=== PATIENT | female | born 1935 | race Caucasian/White ===

== ENCOUNTER 2018-04-15 22:30 | Emergency (ER) | payer MEDICARE, OTHER ==
--- NOTE | 2018-04-15 22:50 | EDM.PDOC ---
ED HPI GENERAL MEDICAL PROBLEM - General Chief Complaint: Lower Extremity Injury/Pain Stated Complaint: L hip pain after fall Time Seen by Provider: 04/15/18 22:43 Source of Information: Reports: Patient History Limitations: Reports: No Limitations - History of Present Illness INITIAL COMMENTS - FREE TEXT/NARRATIVE: 82 YO WF presents to ER after trip and fall at home. Pt reports she was walking and tripped over a single step landing on her left side. Pt denies any head or neck injury. Pt denies any loss of consciousness. Pt complaining of left thigh pain. Pt alert and oriented x 3 and was medicated with fentanyl by EMS prior to arrival. Onset Date: 04/15/18 Onset Time: 22:00 Location: Reports: Lower Extremity, Left Quality: Reports: Ache Severity: Severe Improves with: Reports: Rest Worsens with: Reports: Movement Associated Symptoms: Reports: No Other Symptoms. Denies: Confusion, Chest Pain , Diaphoresis, Fever/Chills, Headaches, Nausea/Vomiting, Shortness of Breath, Syncope Left Hip Pain Score (Numeric/FACES): 4 - Related Data Allergies Allergy/AdvReac Type Severity Reaction Status Date / Time No Known Allergies Allergy Verified 04/15/18 22:45 Home Meds: Home Meds Fish Oil/Nemo-3 Fatty Acids [Fish Oil] 1 each PO DAILY 04/15/18 [History] Multivitamin [Multivitamins] 1 each PO DAILY 04/15/18 [History] atorvaSTATin [Lipitor] 10 mg PO BEDTIME 04/15/18 [History] Review of Systems - Review of Systems Review Of Systems: See Below Eyes: Reports: No Symptoms Ears: Reports: No Symptoms Nose: Reports: No Symptoms Mouth/Throat: Reports: No Symptoms Respiratory: Reports: No Symptoms Cardiovascular: Reports: No Symptoms GI/Abdominal: Reports: No Symptoms Genitourinary: Reports: No Symptoms Musculoskeletal: Reports: Leg Pain (left mid femur) Skin: Reports: No Symptoms Neurological: Reports: No Symptoms Psychiatric: Reports: No Symptoms ED EXAM, GENERAL - Physical Exam Exam: See Below Exam Limited By: No Limitations General Appearance: Alert, WD/WN, No Apparent Distress Head: Atraumatic, Normocephalic Neck: Normal Inspection, Supple, Non-Tender, Full Range of Motion Respiratory/Chest: No Respiratory Distress, Lungs Clear, Normal Breath Sounds, No Accessory Muscle Use, Chest Non-Tender Cardiovascular: Normal Peripheral Pulses, Regular Rate, Rhythm, No Edema, No Gallop, No JVD, No Murmur, No Rub GI/Abdominal: Normal Bowel Sounds, Soft, Non-Tender, No Organomegaly, No Distention, No Abnormal Bruit, No Mass Back Exam: Normal Inspection, Full Range of Motion, NT Extremities: No Pedal Edema, Normal Capillary Refill, Leg Pain (left mid femur) , Limited Range of Motion Neurological: Alert, Oriented, CN II-XII Intact, Normal Cognition, Normal Gait, Normal Reflexes, No Motor/Sensory Deficits Course - Vital Signs Last Recorded V/S: Last Vital Signs Temp 37.5 C 04/15/18 22:35 Pulse 76 04/15/18 22:35 Resp 18 04/15/18 22:35 BP 132/54 L 04/15/18 22:35 Pulse Ox 95 04/15/18 22:35 - Orders/Labs/Meds Orders: Active Orders 24 hr Category Date Time Status Femur Min 2V Lt [CR] Stat Exams 04/15/18 22:45 Ordered Lower Leg wo Cont Lt [CT] Stat Exams 04/15/18 23:20 Ordered Pelvis 1V or 2V [CR] Stat Exams 04/15/18 22:45 Ordered Meds: Medications Discontinued Medications Generic Name Dose Route Start Last Admin Trade Name Christy PRN Reason Stop Dose Admin Hydromorphone HCl 1 mg 04/15/18 23:06 04/15/18 23:11 Dilaudid IVPUSH 04/15/18 23:07 1 mg ONETIME ONE Administration Ondansetron HCl 4 mg 04/15/18 23:06 04/15/18 23:11 Zofran IVPUSH 04/15/18 23:07 4 mg ONETIME ONE Administration - Radiology Interpretation Free Text/Narrative:: left femur- femur neck fracture pelvis- femur neck fracture Departure - Departure Time of Disposition: 23:16 Disposition: DC/Tfer to Acute Hospital 02 Condition: Fair Clinical Impression: Fracture of neck of femur, hip - Discharge Information Forms: ED Department Discharge, Interfacility Transfer EMTALA - My Orders Last 24 Hours: My Active Orders 04/15/18 22:45 Femur Min 2V Lt [CR] Stat Pelvis 1V or 2V [CR] Stat 04/15/18 23:20 Lower Leg wo Cont Lt [CT] Stat - Assessment/Plan Last 24 Hours: My Active Orders 04/15/18 22:45 Femur Min 2V Lt [CR] Stat Pelvis 1V or 2V [CR] Stat 04/15/18 23:20 Lower Leg wo Cont Lt [CT] Stat Assessment:: 1. left femur neck fracture Plan: 1. transfer to [facility] for ortho evaluation- Discussed case with Dr Merlos ER Doc who accepted transfer 2. dilaudid/zofran for pain
[2018-04-15] MEDS ORDERED: HYDROmorphone 1 MG/ML Syringe IVPUSH ONE (23:06)
[2018-04-15] MEDS ORDERED: Ondansetron 4 MG/2 ML SDV IVPUSH ONE (23:06)
== END 2018-04-16 00:15 ==
LOC: KA.ED 22:30
DX: S72.002A Fracture of unspecified part of neck of left femur, initial encounter for closed fracture (principal); W19.XXXA Unspecified fall, initial encounter; Y92.009 Unspecified place in unspecified non-institutional (private) residence as the place of occurrence of the external cause
CPT/HCPCS: 72170; 73700-LT; 96374; 96375; 99285; J1170; J2405